=== PATIENT | male | born 1980 | race Caucasian/White ===

== ENCOUNTER 2020-01-14 22:59 | Emergency (ER) | payer SELFPAY ==
[~2020-01-14] VITALS: Ht 182.9 cm; Wt 90.7 kg
[2020-01-14 23:03] VITALS: BP 113/72
[2020-01-14] MEDS ORDERED: CLINDAMYCIN 900 MG/6 ML VIAL ONE (23:19)
[2020-01-14] MEDS ORDERED: HYDROCODONE/APAP 10/325MG 1 EA TABLET ONE (23:19)
[2020-01-14] MEDS ORDERED: HYDROCODONE/APAP 10/325MG 1 EA TABLET PO ONE (23:30)
[2020-01-14] MEDS ORDERED: CLINDAMYCIN 900 MG/6 ML VIAL IM ONE (23:30)
== END 2020-01-14 23:53 | disposition home or self-care (01) ==
LOC: ER 23:01
DX: L03.115 Cellulitis of right lower limb (principal); Z60.2 Problems related to living alone
CPT/HCPCS: J3490